=== PATIENT | female | born 1955 | race Two or more races ===

== ENCOUNTER 2018-07-07 12:08 | Outpatient (CLI) | payer OTHER | END 2018-07-07 12:12 | disposition home or self-care (01) | LOC: MAMO-SONO 12:08 | DX: Z12.31 Encounter for screening mammogram for malignant neoplasm of breast (principal); Z85.3 Personal history of malignant neoplasm of breast; N64.89 Other specified disorders of breast ==

== ENCOUNTER 2024-04-21 04:32 | Emergency (ER) | payer OTHER ==
[~2024-04-21] VITALS: Ht 162.6 cm; Wt 59.4 kg
[2024-04-21] MEDS ORDERED: TOPROL XL25 M1 PO (04:41)
[2024-04-21] MEDS ORDERED: ELIQUIS2.5 MG PO (04:41)
[2024-04-21 05:40] LABS: PARTIAL THROMBOPLASTIN TIME 28.5 SECONDS (22.0-34.0); PROTHROMBIN TIME 10.9 SECONDS (9.0-11.5)
[2024-04-21 05:42] LABS: ALBUMIN 3.6 gm/dL (3.4-5.0); BILIRUBIN TOTAL 0.69 mg/dL (0.3-1.2); CREATININE SERUM 0.65 mg/dL (0.55-1.02); GFR 90.11; GLOBULINA 3.6 G/DL (2.4-3.5); HEMATOCRIT 35.4 % (36.0-45.00); HEMOGLOBIN 12.1 g/dL (12.0-15.00); MEAN CELL VOLUME 91.9 fL (80.00-100.00); MEAN CORPUSCULAR HEMOGLOBIN 31.5 pg (27.00-32.0); MEAN CORPUSCULAR HGB CONC 34.3 g/dl (32.0-36.0); PLATELET COUNT 236 K/uL (150-450); POTASSIUM 3.51 mEq/L (3.5-5.1); RED BLOOD COUNT 3.85 M/uL (4.00-6.00); RED CELL DISTRIBUTION WIDTH 13.3 % (11.5-14.5); TOTAL PROTEIN 7.2 gm/dL (6.4-8.2)
[2024-04-21 06:37] LABS: PH,URINE 7.5 (5.0-8.0); URINE APPEARANCE Clear; URINE BILIRRUBIN Negative (NEGATIVE); URINE BLOOD Negative; URINE COLOR Yellow; URINE GLUCOSE Negative (NEGATIVE); URINE KETONE Negative (NEGATIVE); URINE LEUKOCYTE Moderate; URINE NITRATE Negative; URINE PROTEIN Negative (NEGATIVE); URINE UROBILINOGEN 0.2 E.U./dl
[2024-04-21 06:42] LABS: URINE BACTERIA 18.8 uL (0.0-1933); URINE EPITHELIAL CELLS 5.8 uL (0.0-38.8); URINE WBC 44.8 uL (0.0-23.2)
[2024-04-21 07:09] LABS: URINE RBC 0.6 uL (0.0-20.8)
[2024-04-21] MEDS ORDERED: APIXABAN 2.5 MG TABLET PO STA (08:29)
[2024-04-21] MEDS ORDERED: 0.9 % SODIUM CHLORIDE 1 ML IV SCH (12:30)
[2024-04-21] MEDS ORDERED: LACTULOSE 20 G/30 ML BLIST.PACK ONE (13:56)
[2024-04-21] MEDS ORDERED: MINERAL OIL 30 ML BLIST.PACK ONE (13:56)
== END 2024-04-21 20:04 | disposition home or self-care (01) ==
LOC: ER → EDBD 04:50 → ER 20:04
PROVIDERS: General Practice
DX: R00.2 Palpitations (principal); R07.9 Chest pain, unspecified; I10 Essential (primary) hypertension; I49.8 Other specified cardiac arrhythmias
CPT/HCPCS: 36415; 71045; 93005; 96365; 96366; 99283; J7030

== ENCOUNTER → 2024-04-27 | Emergency (ER) | payer OTHER ==
[~2024-04-27] VITALS: Ht 162.6 cm; Wt 59.9 kg
[~2024-04-27] MED LIST: DILTIAZEM ER60 MG PO; ELIQUIS2.5 MG PO; TOPROL XL25 M1 PO
== END | disposition left against medical advice (07) ==
LOC: ER 03:50
DX: Z53.21 Procedure and treatment not carried out due to patient leaving prior to being seen by health care provider (principal)

== ENCOUNTER 2024-04-29 11:10 | Outpatient (CLI) | payer OTHER | END 2024-04-29 11:14 | disposition home or self-care (01) | LOC: NUCLEAR 11:10 | PROVIDERS: ATTEND Internal Medicine Cardiovascular Disease | DX: I48.0 Paroxysmal atrial fibrillation (principal) ==

== ENCOUNTER 2024-10-04 11:25 | Outpatient (CLI) | payer OTHER | END 2024-10-04 11:31 | disposition home or self-care (01) | LOC: RAD 11:25 | PROVIDERS: ATTEND General Practice | DX: M99.03 Segmental and somatic dysfunction of lumbar region (principal); M99.04 Segmental and somatic dysfunction of sacral region; M99.05 Segmental and somatic dysfunction of pelvic region ==

== ENCOUNTER 2024-12-28 21:24 | Emergency (ER) | payer OTHER ==
[~2024-12-28] VITALS: Ht 162.6 cm; Wt 55.8 kg
[2024-12-28] MEDS ORDERED: ACEBUTOLOL HCL200 MG PO (21:55)
[2024-12-28] MEDS ORDERED: ELIQUIS5 MG PO (21:55)
[2024-12-28] MEDS ORDERED: FAMOtidine 10 MG/ML (4ML VIAL) IV PUSH STA (22:27)
[2024-12-28] MEDS ORDERED: FAMOTIDINE/PF 20 MG/2 ML VIAL ONE (22:30)
[2024-12-28 23:16] LABS: MEAN CELL VOLUME 90.9 fL (80.00-100.00); MEAN CORPUSCULAR HEMOGLOBIN 31.2 pg (27.00-32.0); MEAN CORPUSCULAR HGB CONC 34.3 g/dl (32.0-36.0); PLATELET COUNT 254 K/uL (150-450); RED BLOOD COUNT 3.85 M/uL (4.00-6.00); RED CELL DISTRIBUTION WIDTH 13.3 % (11.5-14.5)
[2024-12-28 23:31] LABS: INR 0.98; PARTIAL THROMBOPLASTIN TIME 26.8 SECONDS (22.0-34.0); PROTHROMBIN TIME 10.7 SECONDS (9.0-11.5)
[2024-12-28 23:38] LABS: ALBUMIN 3.9 gm/dL (3.4-5.0); BILIRUBIN TOTAL 0.41 mg/dL (0.3-1.2); CALCIUM 9.5 mg/dL (8.5-10.1); CREATININE SERUM 0.64 mg/dL (0.55-1.02); GFR 91.47; GLOBULINA 3.3 G/DL (2.4-3.5); POTASSIUM 4.06 mEq/L (3.5-5.1); TOTAL PROTEIN 7.2 gm/dL (6.4-8.2)
[2024-12-29] MEDS ORDERED: KETOROLAC TROMETHAMINE 30 MG VIAL IV STA (02:59)
[2024-12-29] MEDS ORDERED: ZOLPIDEM TARTRATE 5 MG TABLET PO STA (03:00)
[2024-12-29] MEDS ORDERED: KETOROLAC TROMETHAMINE 30 MG VIAL ONE (03:09)
[2024-12-29] MEDS ORDERED: APIXABAN 5 MG TABLET PO ONE (09:15)
== END 2024-12-29 14:35 | disposition home or self-care (01) ==
LOC: ER 21:25
DX: R00.2 Palpitations (principal); R07.9 Chest pain, unspecified; K21.9 Gastro-esophageal reflux disease without esophagitis
CPT/HCPCS: 36415; 71045; 93041; 96365; 99283; J1885; J3490

== ENCOUNTER 2025-01-03 11:29 | Outpatient (CLI) | payer OTHER ==
[~2025-01-03 11:29] MED LIST changes: +ACEBUTOLOL HCL200 MG PO; +ELIQUIS5 MG PO
== END 2025-01-03 11:35 | disposition home or self-care (01) ==
LOC: SONOGRAMA 11:29
PROVIDERS: ATTEND Internal Medicine Cardiovascular Disease
DX: E07.9 Disorder of thyroid, unspecified (principal)